=== PATIENT | male | born 1945 | race Caucasian/White ===

== ENCOUNTER 2021-08-10 13:35 | Emergency (ER) | payer MEDICARE ==
[~2021-08-10] VITALS: Ht 182.9 cm; Wt 81.8 kg
[2021-08-10 13:37] VITALS: BP 0/0
[2021-08-10] MEDS ORDERED: SODIUM BICARB ADULT 8.4% 50 MEQ/50 ML DISP.SYRIN. ONE (14:00)
[2021-08-10] MEDS ORDERED: EPINEPHrine SYRINGE 1 MG/10 ML SYRINGE ONE (14:00)
[2021-08-10] MEDS ORDERED: CALCIUM CHLORIDE 1,000 MG/10 ML DISP.SYRIN ONE (14:00)
--- NOTE | 2021-08-10 14:55 | PHYS DOC ---
Past Medical History Additional Past Medical Histor: PULM FIBROSIS Past Surgical History: Other Additional Past Surgical Histo: UNKNOWN General Adult EDM: Chief Complaint: CPR/FULL ARREST HPI: HPI: Patient is a 76 year old male with history of severe pulmonary fibrosis on 6 L/min nasal cannula at home who presents with EMS in cardiac arrest. Was reportedly feeling more short of breath, and had been to another medical facility to receive a CT of his chest earlier this morning. Upon checking back into his long-term care facility, he became unresponsive. EMS was called, initially did have a pulse on EMS arrival, but then slumped over and was found to be in cardiac arrest. Initial rhythm asystole. IO access was obtained, and several rounds of epinephrine were given prehospital. Approximately 28 minutes of prehospital CPR was given. Review of Systems: Review of Systems: ROS not obtainable due to cardiac arrest Heart Score: C/O Chest Pain: N/A Risk Factors: Risk Factors: DM, Current or recent (<one month) smoker, HTN, HLP, family history of CAD, obesity. Risk Scores: Score 0 - 3: 2.5% MACE over next 6 weeks - Discharge Home Score 4 - 6: 20.3% MACE over next 6 weeks - Admit for Clinical Observation Score 7 - 10: 72.7% MACE over next 6 weeks - Early Invasive Strategies Allergies: Allergies: Allergies Coded Allergies Type Severity Reaction Last Updated Verified No Known Drug Allergies 08/10/21 No Physical Exam: PE: Constitutional: Pale, chest compressions ongoing HENT: Normocephalic, atraumatic. Supraglottic airway in place receiving bag ventilation. Eyes: Pupils 5 mm, equal, nonreactive Cardiovascular: Pulseless, asystole initially on monitor. Lungs & Thorax: Breath sounds present bilaterally, upon several checks during pulse checks. Abdomen: Nondistended Skin: Cold, mottled Extremities: no edema. [] Neurologic: GCS 3, unresponsive Current Patient Data: Vital Signs: Vital Signs Date Time Temp Pulse Resp B/P (MAP) Pulse Ox O2 Delivery O2 Flow Rate FiO2 08/10/21 13:37 0 0 0/0 (0) EKG: EKG: [] Radiology/Procedures: Radiology/Procedures: [id number] ultrasound revealed bilateral lung sliding, no large pericardial effusion. [] Indication: Cardiac arrest Consent: Unable to give consent due to emergent nature. Medications Used: see nursing note Procedure: The patient was placed in the appropriate position. Intubation was performed with glide scope S4. 7.5 endotracheal tube. Secured with tube quintana at 22 cm at the teeth. Initial confirmation of placement included bilateral breath sounds, tube fogging, adequate chest rise, pH paper. Complications: none. Course & Med Decision Making: Course & Med Decision Making Pertinent Labs and Imaging studies reviewed. (See chart for details) Patient is 76-year-old male with history of COPD/pulmonary fibrosis on 6 L/min nasal cannula who presented with EMS in cardiac arrest. Initial rhythm asystole. ACLS protocols followed. Intubated as above. Ventilated with Peep valve. Given calcium x1, bicarb x2, multiple rounds of epinephrine. Brief period of ROSC was obtained with a narrow complex tachycardia. Quickly developed into bradycardic PEA. One episode of ventricular fibrillation was quickly defibrillated, and resulted in return to narrow complex bradycardic PEA. Capnography was elevated in the 50s for the the majority of the code. Blood glucose was normal. Most likely respiratory arrest with hypoxia and hypercapnia. After approximately 53 minutes of resuscitation efforts were discontinued and the patient was declared at 1402 on 08/10/2021. Family was notified and are now at patient bedside. Corner/medical coding auditor contacted, and will not be taking the case. Family initially did not wish to pursue autopsy. 14:54 Flory Disclaimer: Flory Disclaimer: This electronic medical record was generated, in whole or in part, using a voice recognition dictation system. Departure Departure Impression: Primary Impression: Cardiac arrest Disposition: 20 Condition: Referrals: UNKNOWN PCP NAME (PCP) KALA HUNTER MD Aug 10, 2021 14:54
== END 2021-08-10 16:50 ==
LOC: ER 13:35
DX: I46.9 Cardiac arrest, cause unspecified (principal)
CPT/HCPCS: 82962; 99283; J0171; J3490